=== PATIENT | male | born 1995 | race Caucasian/White ===

== ENCOUNTER 2024-04-15 11:50 | Outpatient (CLI) | payer BC | END 2024-04-15 11:51 | disposition home or self-care (01) | LOC: SCSRAD 11:50 | PROVIDERS: ATTEND Family Medicine | DX: R10.9 Unspecified abdominal pain (principal); E83.59 Other disorders of calcium metabolism; N28.89 Other specified disorders of kidney and ureter | CPT/HCPCS: 74018 ==